=== PATIENT | female | born 1990 | race Two or more races ===

== ENCOUNTER 2017-09-12 22:30 | Inpatient (IN) | END 2017-09-15 13:30 | disposition home or self-care (01) | DRG 775 ==

== ENCOUNTER 2017-11-05 15:21 | Observation (INO) | END 2017-11-06 12:22 | disposition home or self-care (01) ==

== ENCOUNTER 2017-11-07 19:22 | Emergency (ER) | END 2017-11-07 21:30 | disposition left against medical advice (07) ==